=== PATIENT | female | born 1940 | race Caucasian/White ===

== ENCOUNTER 2022-07-12 19:33 | Emergency (ER) | payer BC ==
[~2022-07-12] VITALS: Ht 165.1 cm; Wt 77.2 kg
[2022-07-12] MEDS ORDERED: ELIQUIS5 M1 PO (19:39)
== END 2022-07-12 21:57 | disposition home or self-care (01) ==
LOC: ED 19:33
DX: S09.90XA Unspecified injury of head, initial encounter (principal); I13.10 Hypertensive heart and chronic kidney disease without heart failure, with stage 1 through stage 4 chronic kidney disease, or unspecified chronic kidney disease; N18.9 Chronic kidney disease, unspecified; E78.00 Pure hypercholesterolemia, unspecified; I25.10 Atherosclerotic heart disease of native coronary artery without angina pectoris; I48.91 Unspecified atrial fibrillation; W01.198A Fall on same level from slipping, tripping and stumbling with subsequent striking against other object, initial encounter; Y93.67 Activity, basketball; Y92.89 Other specified places as the place of occurrence of the external cause; Y99.8 Other external cause status